=== PATIENT | male | born 1960 | race Caucasian/White ===

== ENCOUNTER 2017-02-25 09:07 | Inpatient (IN) ==
--- NOTE | 2017-02-25 10:04 | Emergency Department Note ---
Disposition Clinical Impression: Acute renal failure (ARF) Qualifiers: Acute renal failure type: unspecified Qualified Code(s): N17.9 - Acute kidney failure, unspecified Disposition: Admitted As Inpatient Condition: Good Referrals: Davon Mae MD [Primary Care Provider] - Time of Disposition: 11:37 General Adult HPI - General Chief complaint: ED General Medical Stated complaint: renal failure/[facility] Time Seen by Provider: 02/25/17 09:36 Source: patient Limitations: no limitations Nursing Notes Reviewed: Yes Vital Signs Reviewed: Yes - History of Present Illness HPI Narrative: Patient is a 56-year-old male that presents to the emergency department for possible acute renal failure. He states that he had recent blood work done [facility] the [facility] which showed elevated creatinine and worsening of his kidney function. He states that prior to this his last blood work was in December and his kidney function was completely normal. He also states that he was recently diagnosed with new onset atrial fibrillation and has been started on Xeralto. Patient states that he has been feeling fatigued and tired. Patient denies any urinary symptoms at this time. Patient denies having any pain at this time. Patient also reports that he had been recently diagnosed with bronchitis and is still having a cough. Pain Scale: 1 - Related Data Home Medications Medication Instructions Recorded Confirmed Amiloride HCl 5 mg PO DAILY 10/17/15 10/17/15 Fluticasone Propionate Nasal 1 spray NS DAILY 10/17/15 10/17/15 [Flonase] Metoprolol Tartrate [Lopressor] 50 mg PO BID 10/17/15 10/17/15 Montelukast [Singulair] 10 mg PO DAILY 10/17/15 10/17/15 Niacin [Niacor] 500 mg PO DAILY 10/17/15 10/17/15 Potassium Chloride [K-Tab ER] 20 meq PO QID 10/17/15 10/17/15 Tamsulosin [Flomax] 0.4 mg PO DAILY 10/17/15 10/17/15 Valsartan [Diovan] 160 mg PO DAILY 10/17/15 10/17/15 Previous Rx's Medication Instructions Recorded Clindamycin [Cleocin] 150 mg PO Q6HR #8 capsule 10/17/15 Hydrocodone/Acetaminophen [Lost[place] 1 tab PO Q6H PRN #20 tab 10/17/15 5-325 Tablet] Allergies Allergy/AdvReac Type Severity Reaction Status Date / Time Penicillins [PCN] Allergy unknown Verified 02/25/17 09:30 All systems ED: reviewed and negative except as stated. Constitutional: Reports: other (Patient is tired and fatigued) Respiratory: Reports: cough Past Medical History - Past Medical History Medical history: Reports: atrial fibrillation, GERD, hypertension, kidney stones , renal disease Psychiatric history: Reports: no psych history - Social History Smoking Status: Former smoker Smokeless Tobacco Status: No Alcohol use: Reports: none Drug use: Reports: none Physical Exam - General Limitations: no limitations General appearance: alert, in no apparent distress - Head Head exam: atraumatic, normocephalic - Eye Eye exam: Present: normal appearance, EOMI - Neck Neck exam: Present: normal inspection, full ROM, trachea midline - Respiratory Respiratory exam: Present: normal lung sounds bilaterally. Absent: respiratory distress, wheezes - Cardiovascular Cardiovascular exam: Present: regular rate, normal rhythm, normal heart sounds, +S1, +S2 - Abdominal Exam Abdominal exam: Present: soft, Non-Tender, normal bowel sounds - Neurological Exam Neurological exam: Present: alert, oriented X3 - Psychiatric Psychiatric exam: Present: normal affect, normal mood - Skin Skin exam: Present: warm, dry, intact Course Vital Signs Temperature 98.2 F 02/25/17 09:30 Pulse Rate 80 02/25/17 09:30 Respiratory Rate 20 02/25/17 09:30 Blood Pressure 124/76 02/25/17 09:30 O2 Sat by Pulse Oximetry 96 02/25/17 09:30 Temperature 98.2 F 02/25/17 09:30 Pulse Rate 80 02/25/17 09:30 Respiratory Rate 20 02/25/17 09:30 Blood Pressure 124/76 02/25/17 09:30 O2 Sat by Pulse Oximetry 96 02/25/17 09:30 Oxygen Delivery Oxygen Delivery Room Air Medical Decision Making - MDM Narrative Medical decision making narrative: Due to the patient presenting with possible acute renal failure we have ordered a CBC, BMP, urinalysis and an EKG. Patient elevated creatinine of 2.82. Patient also had an elevated blood glucose. This could possibly be due to the patient having recently been on steroids. Patient does not have any signs of DKA at this time. Patient also had an elevated TSH but is decreased from previous testing at the [facility]. I have spoken with the hospitalist and they have accepted this patient to their service. The patient will be admitted to the hospital for further evaluation and management. - Medical Records Medical records reviewed: Yes I reviewed the patient's medical records. - Lab Data Lab results reviewed: Yes I reviewed the patient's lab results. Result diagrams: 02/25/17 10:00 02/25/17 10:00 Lab Results 02/25/17 02/25/17 02/25/17 Range/Units 10:00 10:00 10:00 WBC 8.6 (4.3-11.1) K/mcL RBC 5.26 (4.19-5.50) M/mcL Hgb 14.9 (12.9-16.9) g/dL Hct 44.4 (37.5-50.1) % MCV 84.4 (83.0-100.0) fL MCH 28.3 (28.0-33.3) pg MCHC 33.6 (31.6-35.5) g/dL RDW 13.0 (11.5-14.5) % Plt Count 191 (140-400) K/mcL MPV 9.6 (9.4-12.4) fL Immature Gran % 1.4 (0-4) % Seg Neutrophils % 68.1 % Lymphocytes % 18.3 % Monocytes % 7.2 % Eosinophils % 4.7 % Basophils % 0.3 % Neutrophils # 5.9 (1.6-8.9) K/mcL Lymphocytes # 1.6 (0.6-4.6) K/mcL Monocytes # 0.6 (0.0-1.3) K/mcL Eosinophils # 0.4 (0.0-0.6) K/mcL Basophils # 0.0 (0.0-0.2) K/mcL Sodium 140 (136-145) mEq/L Potassium 4.0 (3.5-5.1) mEq/L Chloride 105 (98-107) mEq/L Carbon Dioxide 29 (23-29) mEq/L BUN 41 H (6-20) mg/dL Creatinine 2.82 H (0.70-1.30) mg/dL Est GFR ( Amer) 28 L (> 60) Est GFR (Non-Af Amer) 23 L (> 60) BUN/Creatinine Ratio 15 (6-26) Glucose 281 H (70-105) mg/dL Calculated Osmolality 310 H (280-300) Calcium 9.0 (8.6-10.3) mg/dL TSH 9.649 H (0.340-5.600) mcIU/mL Urine Color (Yellow) Urine Clarity (Clear) Urine pH (5.0-8.0) pH Units Ur Specific [place] (1.010-1.025) Urine Protein (Neg-Trace) mg/dL Urine Glucose (UA) (Normal) mg/dL Urine Ketones (Negative) mg/dL Urine Blood (Negative) Urine Nitrite (Negative) Urine Bilirubin (Negative) Urine Urobilinogen (Normal) mg/dL Ur Leukocyte Esterase (Negative) Ur Culture Indicated? (NO) 02/25/17 Range/Units 10:39 WBC (4.3-11.1) K/mcL RBC (4.19-5.50) M/mcL Hgb (12.9-16.9) g/dL Hct (37.5-50.1) % MCV (83.0-100.0) fL MCH (28.0-33.3) pg MCHC (31.6-35.5) g/dL RDW (11.5-14.5) % Plt Count (140-400) K/mcL MPV (9.4-12.4) fL Immature Gran % (0-4) % Seg Neutrophils % % Lymphocytes % % Monocytes % % Eosinophils % % Basophils % % Neutrophils # (1.6-8.9) K/mcL Lymphocytes # (0.6-4.6) K/mcL Monocytes # (0.0-1.3) K/mcL Eosinophils # (0.0-0.6) K/mcL Basophils # (0.0-0.2) K/mcL Sodium (136-145) mEq/L Potassium (3.5-5.1) mEq/L Chloride (98-107) mEq/L Carbon Dioxide (23-29) mEq/L BUN (6-20) mg/dL Creatinine (0.70-1.30) mg/dL Est GFR ( Amer) (> 60) Est GFR (Non-Af Amer) (> 60) BUN/Creatinine Ratio (6-26) Glucose (70-105) mg/dL Calculated Osmolality (280-300) Calcium (8.6-10.3) mg/dL TSH (0.340-5.600) mcIU/mL Urine Color Yellow (Yellow) Urine Clarity Clear (Clear) Urine pH 6.0 (5.0-8.0) pH Units Ur Specific [place] 1.022 (1.010-1.025) Urine Protein Negative (Neg-Trace) mg/dL Urine Glucose (UA) 250 H (Normal) mg/dL Urine Ketones Negative (Negative) mg/dL Urine Blood Negative (Negative) Urine Nitrite Negative (Negative) Urine Bilirubin Negative (Negative) Urine Urobilinogen Normal (Normal) mg/dL Ur Leukocyte Esterase Negative (Negative) Ur Culture Indicated? NO (NO) - EKG Data EKG #1 EKG attestation: Yes I reviewed and interpreted this EKG. EKG results narrative: EKG showed a sinus rhythm at a rate of 70 bpm, UT interval of 212, QRS duration of 109, QTC of 391 with a normal axis. There is no STEMI noted on this EKG. There is no previous EKG for comparison.
[2017-02-25 10:17] LABS: Basophils % 0.3 %; Eosinophils # 0.4 K/mcL (0.0-0.6); Eosinophils % 4.7 %; Hematocrit 44.4 % (37.5-50.1); Hemoglobin 14.9 g/dL (12.9-16.9); Immature Granulocytes % 1.4 % (0-4); Lymphocytes # 1.6 K/mcL (0.6-4.6); Lymphocytes % 18.3 %; Mean Corpuscular HGB Conc 33.6 g/dL (31.6-35.5); Mean Corpuscular Hemoglobin 28.3 pg (28.0-33.3); Mean Corpuscular Volume 84.4 fL (83.0-100.0); Mean Platelet Volume 9.6 fL (9.4-12.4); Monocytes # 0.6 K/mcL (0.0-1.3); Monocytes % 7.2 %; Neutrophils # 5.9 K/mcL (1.6-8.9); Platelet Count 191 K/mcL (140-400); Red Blood Count 5.26 M/mcL (4.19-5.50); Segmented Neutrophils % 68.1 %
--- NOTE | 2017-02-25 10:26 | Emergency Department Note ---
START Narrative - START START: I examined this patient and my medical decision-making was reviewed with the Resident Physician. I agree with the documented findings, disposition and treatment plan as described except to the extent set forth below. 56 year old male presnts to the ED sent [place] us [place] for hyperglycemia and acute renal fialure. Valentin most recently was placed on steroid therapy for a chronic brnochitis that he developed in addition to recently being diafnosed with atiral fibrillation which he is currenlty on lopressor and xarelto therapy. 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 We will do workup and rule out DKA/HHS and admit to medicine for ARF.
[2017-02-25] MEDS ORDERED: 0.9 % Sodium Chloride 1,000 ML IVC ONE (10:40)
[2017-02-25 10:51] LABS: Bilirubin,Urine Negative (Negative); Blood,Urine Negative (Negative); Clarity,Urine Clear (Clear); Color,Urine Yellow (Yellow); Glucose,Urine (UA) 250 mg/dL (Normal); Ketones,Urine Negative (Negative); Leukocyte Esterase,Urine Negative (Negative); Nitrite,Urine Negative (Negative); Protein,Urine Negative (Neg-Trace); Specific Gravity,Urine 1.022 (1.010-1.025); Urobilinogen,Urine Normal (Normal)
[2017-02-25] MEDS ORDERED: *HR* Dextrose 50 % in Water (Syg) 50 ML SYRINGE IVP PRN (17:37)
[2017-02-25] MEDS ORDERED: Dextrose Gel 15 GM/37.5 ML TUBE PO PRN ×2 (17:37)
[2017-02-25] MEDS ORDERED: D5% in Water 1,000 ML IVC PRN (17:37)
[2017-02-25] MEDS ORDERED: Naloxone 0.4 MG/ML INJ IVP PRN (17:37)
[2017-02-25] MEDS ORDERED: Acetaminophen 325 MG TABLET PO PRN (17:37)
--- NOTE | 2017-02-25 17:37 | Internal Med History&Physical ---
<Renee Castillo S - Last Filed: 02/25/17 18:12> Date of Encounter: 02/25/17 Time of Encounter: 17:37 Assessment and Plan (1) Acute renal failure (ARF) Status: Acute 56-year-old gentleman who presented from the [facility] with new onset of acute kidney injury BUN 41/creatinine 2.8 with normal reading one month ago. IV fluids Avoid nephrotoxic agents such as NSAIDs Hold valsartan Nephrology consult Renal ultrasound Patient has a history of kidney stones follow labs Qualifiers: Acute renal failure type: unspecified Qualified Code(s): N17.9 - Acute kidney failure, unspecified (2) Diabetes mellitus Status: Acute Patient is borderline diabetic per he and his . 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 Coe is a 56 year old male who presented to the emergency room referred by the [facility] system with new onset acute kidney injury and borderline diabetic. He was recently diagnosed with atrial fibrillation and placed on xarelto and Lopressor. He was also on valsartan for blood pressure control. He is also day #3 of Avelox and completed steroids for bronchitis. The patient states he has been taking ibuprofen 400 mg BID for right knee pain. He also not felt well, complaining of nausea and dizziness over the past few days He also does not drink water. He has an elevated TSH which is being followed at the [facility]. He states his hemoglobin A1c in January was 6.2. He denies fever, chills, chest pain, shortness of breath, abdominal pain, extremity edema, or syncope. He has had a little intermittent right flank pain. He denies any burning on urination , no diarrhea or constipation. His was at the bedside and we discussed plan of care. All questions were answered and he is agreeable to proposed plan. Past Med Surg Social Fam HX - Past Medical History Medical history: arthritis, atrial fibrillation, diabetes (borderline), GERD, hypertension, kidney stones, renal disease Psychiatric history: no psych history - Social History Smoking Status: Former smoker Smokeless Tobacco Status: No Alcohol use: none Drug use: none - Family History Mother Living Status: Age at : 61 Cause of : Cancer Hx Family Cancer: Yes (Breast with bone mets) Father Living Status: Age at : 72 Cause of : AR Hx Family Cardiac Disorders: Yes (AR) Hx Family Respiratory Disorders: Yes (COPD) Son Living Status: Age at : 56 Cause of : Cancer with mets Hx Family Cancer: Yes (Liver, brain, bone) Internal Medicine - H&P: Meds Fluticasone Propionate Nasal [Flonase] 50 mcg NS DAILY 10/17/15 [History] Metoprolol Tartrate [Lopressor] 50 mg PO BID 10/17/15 [History] Montelukast [Singulair] 10 mg PO DAILY 10/17/15 [History] Tamsulosin [Flomax] 0.4 mg PO DAILY 10/17/15 [History] Moxifloxacin HCl [Avelox] 400 mg PO DAILY 02/25/17 [History] Rivaroxaban [Xarelto] 20 mg PO DAILY 02/25/17 [History] predniSONE [PredniSONE] See Taper PO DAILY #18 tablet 02/27/17 [Rx] 3 Allergy/AdvReac Type Severity Reaction Status Date / Time Penicillins [PCN] Allergy unknown Verified 02/25/17 09:30 All Systems PM: A 10-system review of systems was performed and is negative for pertinent findings except as documented above in the HPI. - Constitutional Constitutional: as per HPI, fatigue, weight loss, no chills, no fever(s), no night sweats - EENT Eyes: no change in vision, no discharge, no pain, no photophobia Ears: no ear discharge, no ear pain, no tinnitus Nose, mouth and throat: no dysphagia, no nasal discharge, no neck pain, no sore throat - Cardiovascular Cardiovascular ROS IM: lightheadedness, no chest pain, no diaphoresis, no dyspnea, no edema, no palpitations, no syncope - Respiratory Respiratory: cough, no dyspnea, no hemoptysis, no dyspnea on exertion, no wheezing, no pain on inspiration, no excessive phlegm production - Gastrointestinal Gastrointestinal: nausea, no abdominal pain, no diarrhea, no hematemesis, no hematochezia, no melena, no vomiting - Genitourinary Genitourinary ROS male: flank pain, no difficulty urinating, no dysuria - Musculoskeletal Musculoskeletal ROS IM: other (right knee pain ), no numbness, no tingling - Integumentary Integumentary IM: no rash, no unusual bruising - Neurological Neurological ROS: no confusion, no convulsions, no focal weakness, no numbness, no tingling, no tremor(s) - Endocrine Endocrine IM: fatigue - Hematologic/Lymphatic Hematologic/Lymphatic: no easy bruising - Allergic/Immunologic Allergic/Immunologic: other (chronic sinus congestion) - Constitutional Vitals: Temp Pulse Resp BP Pulse Ox 98.5 F 76 16 114/70 95 02/25/17 16:25 02/25/17 16:25 02/25/17 16:25 02/25/17 16:25 02/25/17 16:25 General appearance: Present: A&O X 3, pleasant, no acute distress, obese, answers questions appropriately - Head Head exam: Present: atraumatic, normocephalic - Eye Eye exam: Present: PERRL, conjuntiva pink, sclera anicteric Pupils: Present: PERRL - Neck Neck exam general surgery: Present: supple, trachea midline. Absent: lymphadenopathy - Respiratory Respiratory exam: Present: CTAB. Absent: accessory muscle use, rales, rhonchi, wheezes - Cardiovascular Cardiovascular exam: Present: irregular rhythm, RRR. Absent: diastolic murmur, gallop, rubs, systolic murmur - GI/Abdominal GI/Abdominal exam: Present: normal bowel sounds, soft, no peritoneal signs. Absent: distended, tenderness - Extremities Exam Extremities exam: Present: warm, radial pulses palpable and symmetrical. Absent : calf tenderness, cyanotic, pedal edema - Neurological Exam Neurological exam: Present: CN II-XII intact, oriented X3, no focal deficits. Absent: pronater drift, facial droop, speech deficit - Skin Skin exam: Present: dry, intact, warm Internal Med - H&P Results - Labs CBC & Chem 7: 02/25/17 10:00 02/25/17 10:00 <Chet Antony P - Last Filed: 02/28/17 18:24> Date of Encounter: 02/28/17 Internal Medicine - H&P: HPI History of present illness: Mr. Coe is a 57 year old male All Systems PM: A 10-system review of systems was performed and is negative for pertinent findings except as documented above in the HPI. - Constitutional Vitals: Temp Pulse Resp BP Pulse Ox 98.2 F 95 16 145/88 94 02/27/17 10:56 02/27/17 10:56 02/27/17 10:56 02/27/17 10:56 02/27/17 10:56 Internal Med - H&P Results - Labs CBC & Chem 7: 02/26/17 03:21 02/27/17 05:05 - Impressions ITS Impressions Retroperitoneum Ultrasound 02/25/17 17:44 IMPRESSION: Unremarkable ultrasound of the kidneys and urinary bladder. Suspected fatty infiltration of the liver. 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 I agree with the documented findings, disposition and treatment plan as described except to the extent set forth below.
[2017-02-25] MEDS: Insulin LISPRO 300 UNITS/3 ML VIAL SQ SCH ×2 (18:29→21:06)
[2017-02-25] MEDS: 0.9 % Sodium Chloride 1,000 ML IVC SCH (18:38)
[2017-02-25] MEDS: *HR* Rivaroxaban 10 MG TABLET PO SCH (21:53)
[2017-02-26 04:03] LABS: Basophils # 0.1 K/mcL (0.0-0.2); Basophils % 0.5 %; Eosinophils # 0.5 K/mcL (0.0-0.6); Eosinophils % 4.6 %; Hematocrit 40.4 % (37.5-50.1); Hemoglobin 13.9 g/dL (12.9-16.9); Immature Granulocytes % 0.9 % (0-4); Lymphocytes # 1.9 K/mcL (0.6-4.6); Lymphocytes % 19.3 %; Mean Corpuscular HGB Conc 34.4 g/dL (31.6-35.5); Mean Corpuscular Volume 84.2 fL (83.0-100.0); Mean Platelet Volume 9.9 fL (9.4-12.4); Monocytes # 0.8 K/mcL (0.0-1.3); Monocytes % 8.4 %; Neutrophils # 6.7 K/mcL (1.6-8.9); Platelet Count 210 K/mcL (140-400); Segmented Neutrophils % 66.3 %
[2017-02-26 04:15] LABS: INR 2.1; Prothrombin Time 22.8 Seconds (9.4-12.1)
[2017-02-26 04:17] LABS: Activated Partial Thrombo Time 38.3 Seconds (26.0-36.0); Albumin 3.2 g/dL (3.5-5.7); Albumin/Globulin Ratio 1.2 (1.1-2.2); Bilirubin,Total 0.5 mg/dL (0.3-1.0); Calcium 8.4 mg/dL (8.6-10.3); Chol/HDL Ratio 5.6 (0-4.9); Globulin 2.7 g/dL (2.4-3.5); Magnesium 1.8 mg/dL (1.6-2.6); Phosphorous 4.3 mg/dL (2.7-4.5); Potassium 3.6 mEq/L (3.5-5.1); Total Protein 5.9 g/dL (6.4-8.9)
[2017-02-26] MEDS: 0.9 % Sodium Chloride 1,000 ML IVC SCH ×2 (06:11→17:37)
[2017-02-26] MEDS: Insulin LISPRO 300 UNITS/3 ML VIAL SQ SCH ×3 (07:52→17:36)
[2017-02-26] MEDS ORDERED: *HR* Rivaroxaban 10 MG TABLET PO SCH (09:00)
[2017-02-26] MEDS ORDERED: Fluticasone Propionate Nasal 50 MCG/SPRAY BOTTLE NS SCH (09:00)
[2017-02-26] MEDS: levoFLOXacin 250 MG TABLET PO SCH (10:22)
--- NOTE | 2017-02-26 11:25 | Internal Med Progress Note ---
<Sharif Lowery - Last Filed: 02/26/17 13:18> Date of Encounter: 02/26/17 Time of Encounter: 09:00 - Assessment and plan (1) Acute renal failure (ARF) Current Visit: Yes Status: Acute Assessment and plan: History of poor fluid intake and NSAID use for roughly 10-12 months using Ibuprofen 400 twice per day Urine neg Cr improving 2.82 -> 2.43 Renal ultrasound showing unremarkable US of kidneys and urinary bladder. Suspected fatty infiltration of the liver Plan: Avoid NSAIDs Hold valsartan and diuretics Nephrology consulted Continue IVF @ 100cc/hr Continue to watch kidney function over the weekend and plan for discharge tuesday Qualifiers: Acute renal failure type: unspecified Qualified Code(s): N17.9 - Acute kidney failure, unspecified (2) Atrial fibrillation Current Visit: Yes Status: Chronic Assessment and plan: Well controlled at this time HR 70s Telemetry NSR today Continue Lopressor and Xarelto Qualifiers: Atrial fibrillation type: chronic Qualified Code(s): I48.2 - Chronic atrial fibrillation (3) Acute bronchitis Current Visit: Yes Status: Acute Assessment and plan: On day four of Avelox Adding steroids and duonebs Qualifiers: Bronchitis organism: unspecified organism Qualified Code(s): J20.9 - Acute bronchitis, unspecified (4) HTN (hypertension) Current Visit: Yes Status: Chronic Assessment and plan: Holding home medications with ARF Well controlled at this time Qualifiers: Hypertension type: essential hypertension Qualified Code(s): I10 - Essential (primary) hypertension (5) Diabetes mellitus Current Visit: Yes Status: Acute Assessment and plan: Last A1c 6.2 in January BS in 200s on admission Blood sugars improved from yesterday Continue Accu-checks with LDSS coverage Diabetic diet Diabetic education on discharge Qualifiers: Diabetes mellitus type: type 2 Diabetes mellitus complication status: without complication Diabetes mellitus predatory animal exterminator insulin use: without predatory animal exterminator use Qualified Code(s): E11.9 - Type 2 diabetes mellitus without complications (6) Elevated TSH Current Visit: Yes Status: Acute Assessment and plan: Asymptomatic at this time. TSH 9.6 Checking free T4 and pending results, will initiate levothyroxine therapy (7) DVT prophylaxis Current Visit: Yes Status: Acute Assessment and plan: On xarelto - Subjective Interval history: Patient is admitted for ARF He is resting comfortably in chair with present No new concerns No overnight events per nursing Denies any fevers, chills, n/v, CP, palpitations, abdominal pain or GI issues - Constitutional Vitals: Temp Pulse Resp BP Pulse Ox 99.0 F 77 16 127/77 94 02/26/17 07:43 02/26/17 07:43 02/26/17 07:43 02/26/17 07:43 02/26/17 07:43 General appearance: Present: A&O X 3, pleasant, no acute distress, obese, answers questions appropriately - Head Head exam: Present: atraumatic, normocephalic - Eye Eye exam: Present: EOMI, normal appearance, conjuntiva pink, sclera anicteric - ENT ENT exam: Present: mucous membranes moist - Neck Neck exam general surgery: Present: supple, trachea midline - Respiratory Respiratory exam: Present: wheezes (bibasilar with crackles, cough with deep inspriation). Absent: respiratory distress - Cardiovascular Cardiovascular exam: Present: RRR, +S1, +S2 - GI/Abdominal GI/Abdominal exam: Present: normal bowel sounds, soft. Absent: tenderness - Extremities Exam Extremities exam: Present: warm. Absent: pedal edema, tenderness - Neurological Exam Neurological exam: Present: alert, oriented X3, no focal deficits - Psychiatric Psychiatric exam: Present: normal affect, normal mood - Skin Skin exam: Present: dry, warm Internal Medicine: Result - Labs CBC & Chem 7: 02/26/17 03:21 02/26/17 03:21 Labs: Short CBC 02/26/17 Range/Units 03:21 WBC 10.0 (4.3-11.1) K/mcL Hgb 13.9 (12.9-16.9) g/dL Hct 40.4 (37.5-50.1) % Plt Count 210 (140-400) K/mcL Neutrophils # 6.7 (1.6-8.9) K/mcL BMP 02/26/17 03:21 Sodium 142 Potassium 3.6 Chloride 111 H Carbon Dioxide 26 BUN 35 H Creatinine 2.43 H Glucose 142 H Calcium 8.4 L Liver Function 02/26/17 Range/Units 03:21 Total Bilirubin 0.5 (0.3-1.0) mg/dL AST 22 (13-39) Units/L ALT 31 (7-52) Units/L Alkaline Phosphatase 40 (34-104) Units/L Albumin 3.2 L (3.5-5.7) g/dL - ABG Interpretation ABG results: PT/INR, D-dimer PT 22.8 Seconds (9.4-12.1) H 02/26/17 03:21 - Impressions Impressions Retroperitoneum Ultrasound 02/25/17 17:44 IMPRESSION: Unremarkable ultrasound of the kidneys and urinary bladder. Suspected fatty infiltration of the liver. D/ / Esther Turner Cha, MD / Esther Turner Cha, MD Interpreting Provider: Esther Turner Cha, MD Consult Discharge Plan - Plan Referrals: Davon Mae MD [Primary Care Provider] - <[email or web address] - Last Filed: 02/26/17 15:48> Date of Encounter: 02/26/17 - Constitutional Vitals: Temp Pulse Resp BP Pulse Ox 99.2 F 85 16 109/70 92 02/26/17 11:21 02/26/17 11:21 02/26/17 11:57 02/26/17 11:21 02/26/17 11:57 Internal Medicine: Result - Labs CBC & Chem 7: 02/26/17 03:21 02/26/17 03:21 Labs: Short CBC 02/26/17 Range/Units 03:21 WBC 10.0 (4.3-11.1) K/mcL Hgb 13.9 (12.9-16.9) g/dL Hct 40.4 (37.5-50.1) % Plt Count 210 (140-400) K/mcL Neutrophils # 6.7 (1.6-8.9) K/mcL BMP 02/26/17 03:21 Sodium 142 Potassium 3.6 Chloride 111 H Carbon Dioxide 26 BUN 35 H Creatinine 2.43 H Glucose 142 H Calcium 8.4 L Liver Function 02/26/17 Range/Units 03:21 Total Bilirubin 0.5 (0.3-1.0) mg/dL AST 22 (13-39) Units/L ALT 31 (7-52) Units/L Alkaline Phosphatase 40 (34-104) Units/L Albumin 3.2 L (3.5-5.7) g/dL - ABG Interpretation ABG results: PT/INR, D-dimer PT 22.8 Seconds (9.4-12.1) H 02/26/17 03:21 - Impressions Impressions Retroperitoneum Ultrasound 02/25/17 17:44 IMPRESSION: Unremarkable ultrasound of the kidneys and urinary bladder. Suspected fatty infiltration of the liver. D/ / Esther Turner Cha, MD / Esther Turner Cha, MD Interpreting Provider: Esther Turner Cha, MD - Attending Attestation I examined this patient and my medical decision-making was reviewed with the Resident Physician Dr. Lowery. I agree with the documented findings, disposition and treatment plan as described except to the extent set forth below. Mr. Coe is a 56 year old male who presented to the emergency room referred by the [place] system with new onset acute kidney injury and borderline diabetic. He was recently diagnosed with atrial fibrillation and placed on xarelto and Lopressor. He was also on valsartan for blood pressure control. He is also day #3 of Avelox and completed steroids for bronchitis. The patient states he has been taking ibuprofen 400 mg BID for right knee pain. Pt was admitted here and started IV hydration. he is feeling little better today. Denied any CP / SOB. No events over night Gen: A, A, O x 3 Chest: Diminished BS b/l basal regions, no crackles Heart: S1 S2+ RRR Abd: Soft NT a/p 1. SRIDEVI - Pre renal mostly due to diuretics + ARB's ( hypotenstion ) + Chronic NSAID usage Hold diuretics + ARB's D/C NSAIDs IV hydration 2. Recent bronchitis cont home meds
[2017-02-26] MEDS: Ipratropium/Albuterol Neb 3 ML IH SCH ×3 (11:57→21:05)
--- NOTE | 2017-02-26 12:20 | Nephrology Consult Note ---
Date of Encounter: 02/26/17 Time of Encounter: 12:17 Assessment and Plan (1) Acute renal failure (ARF) Current Visit: Yes Status: Acute Patient with SRIDEVI that seems to be multifactorial. Ongoing NSAID use, hypotension in the face of ARB and diuretic use. Fortunately his renal function has improved overnight. Continue hydration. Renal ultrasound unremarkable. D/C NSAIDs Hold ARB and diuretics. No need for renal replacement therapy. I anticipate recovery. Qualifiers: Acute renal failure type: unspecified Qualified Code(s): N17.9 - Acute kidney failure, unspecified (2) Acute bronchitis Current Visit: Yes Status: Acute Per primary team. Continue antibiotics. Qualifiers: Bronchitis organism: unspecified organism Qualified Code(s): J20.9 - Acute bronchitis, unspecified (3) Diabetes mellitus Current Visit: Yes Status: Acute Patient would benefit from lifestyle modifications. Can add metformin once his SRIDEVI has resolved. Primary team to manage. Qualifiers: Diabetes mellitus type: type 2 Diabetes mellitus complication status: without complication Diabetes mellitus group home insulin use: without tank terminal gauger use Qualified Code(s): E11.9 - Type 2 diabetes mellitus without complications (4) Elevated TSH Current Visit: Yes Status: Acute Per primary team. ?sick euthyroid syndrome. Check free t4 and total t3 History of Present Illness - Reason for Consult Consult date: 02/26/17 Acute Kidney Injury - Chief Complaint SRIDEVI - History of Present Illness Mr. Coe is a 57 yo man with a history of hypertension who presents with bronchitis and acute kidney injury. He is accompanied by his who is a nurse and helps fill in the details of his history. Over a week ago the patient had decreased energy and was not feeling well manifested mostly by excessive lethargy. He was initially found to have bronchitis and was started on antibiotics and steroids. Subsequently he was also found to have atrial fibrillation and was started on Xarelto and his beta belinda was increased. At home he was found to have systolic blood pressure as low as the mid 80s. He denies nausea, vomiting or diarrhea. His repeat lab work indicated a worsening renal function which was new and he was advised to come to the ER for evaluation of his SRIDEVI. Patient reports he has been taking NSAIDs daily for about a year and stopped about a week ago after his acute kidney injury was detected. He has had 3 episodes of passing kidney stones and the last was over 5 years ago. He denies a family history of kidney disease. Past Med Surg Social Fam HX - Past Medical History Medical history: arthritis, atrial fibrillation, diabetes (borderline), GERD, hypertension, kidney stones, renal disease Psychiatric history: no psych history - Social History Smoking Status: Former smoker Smokeless Tobacco Status: No Alcohol use: none Drug use: none - Family History Mother Living Status: Age at : 61 Cause of : Cancer Hx Family Cancer: Yes (Breast with bone mets) Father Living Status: Age at : 72 Cause of : OR Hx Family Cardiac Disorders: Yes (OR) Hx Family Respiratory Disorders: Yes (COPD) Son Living Status: Age at : 56 Cause of : Cancer with mets Hx Family Cancer: Yes (Liver, brain, bone) Medications and Allergies Fluticasone Propionate Nasal [Flonase] 50 mcg NS DAILY 10/17/15 [History] Metoprolol Tartrate [Lopressor] 50 mg PO BID 10/17/15 [History] Montelukast [Singulair] 10 mg PO DAILY 10/17/15 [History] Potassium Chloride [K-Tab ER] 40 meq PO BID 10/17/15 [History] Tamsulosin [Flomax] 0.4 mg PO DAILY 10/17/15 [History] Valsartan [Diovan] 160 mg PO DAILY 10/17/15 [History] Moxifloxacin HCl [Avelox] 400 mg PO DAILY 02/25/17 [History] Rivaroxaban [Xarelto] 20 mg PO DAILY 02/25/17 [History] Triamterene/Hydrochlorothiazid [Triamterene-Hctz 75-50 mg Tab] 1 tab PO DAILY [History] 3 Allergy/AdvReac Type Severity Reaction Status Date / Time Penicillins [PCN] Allergy unknown Verified 02/25/17 09:30 Review of Systems All Systems: reviewed and no additional remarkable complaints except as stated ( as documented in the hpi) Exam - Vital Signs Vital signs: Initial Vital Signs Temp Pulse Resp BP Pulse Ox 98.2 F 80 20 124/76 96 02/25/17 09:30 02/25/17 09:30 02/25/17 09:30 02/25/17 09:30 02/25/17 09:30 Vital Signs - Last 8 Hours Temp Pulse Resp BP Pulse Ox 02/26/17 11:57 16 92 02/26/17 11:21 99.2 F 85 16 109/70 96 02/26/17 07:43 99.0 F 77 16 127/77 94 Intake and Output 02/25/17 02/26/17 02/26/17 23:59 07:59 15:59 Intake Total 1000 / 1000 240 / 240 Output Total 900 / 900 1350 / 1350 Balance -900 / -900 -350 / -350 240 / 240 Intake: IV Fluids 1000 / 1000 0.9 % Sodium Chloride 1,000 ML 1000 / 1000 @ 100 mls/hr IVC .Q10H HERMILA Rx#: [id number] Oral 240 / 240 Output: Urine 900 / 900 1350 / 1350 Other: Meal Breakfast Percent of Meal Consumed 100% Weight 105.24 kg Blood Glucose* 181 138 251 Patient Weight 02/26/17 23:59 Weight 105.24 kg - General Appearance General appearance: well-developed, well-nourished, obese EENT: ATNC Neck: supple Respiratory: clear Cardiology: no edema, regular rate, regular rhythm Gastrointestinal: no tenderness, obese Integumentary: warm and dry Neurologic: alert and oriented x3 Musculoskeletal: no cyanosis Psychiatric: mood/affect appropriate Results - Lab Results 02/26/17 03:21 02/26/17 03:21 Most recent lab results Calcium 8.4 mg/dL (8.6-10.3) L 02/26/17 03:21 Phosphorus 4.3 mg/dL (2.7-4.5) 02/26/17 03:21 Magnesium 1.8 mg/dL (1.6-2.6) 02/26/17 03:21 Consult Discharge Plan - Plan Referrals: Davon Mae MD [Primary Care Provider] -
[2017-02-26] MEDS: predniSONE 20 MG TABLET PO SCH (13:08)
[2017-02-26] MEDS: *HR* Rivaroxaban 10 MG TABLET PO SCH (17:37)
[2017-02-27] MEDS: 0.9 % Sodium Chloride 1,000 ML IVC SCH (03:40)
[2017-02-27] MEDS: Ipratropium/Albuterol Neb 3 ML IH SCH ×2 (04:07→10:48)
[2017-02-27] MEDS: Insulin LISPRO 300 UNITS/3 ML VIAL SQ SCH ×2 (05:15→07:54)
[2017-02-27 05:45] LABS: Calcium 8.1 mg/dL (8.6-10.3); Potassium 3.6 mEq/L (3.5-5.1)
--- NOTE | 2017-02-27 07:46 | Internal Med Progress Note ---
Date of Encounter: 02/27/17 Time of Encounter: 07:46 - Assessment and plan (1) Acute renal failure (ARF) Current Visit: Yes Status: Acute Assessment and plan: History of poor fluid intake, NSAID use for roughly 10-12 months using Ibuprofen 400 twice per day and hypotension with ARB use Urine neg Cr improving 2.82 -> 2.43 -> 2.03 Renal ultrasound showing unremarkable US of kidneys and urinary bladder. Suspected fatty infiltration of the liver Plan: Avoid NSAIDs Hold valsartan and diuretics Nephrology following Continue IVF Plan for discharge tuesday Qualifiers: Acute renal failure type: unspecified Qualified Code(s): N17.9 - Acute kidney failure, unspecified (2) Atrial fibrillation Current Visit: Yes Status: Chronic Assessment and plan: Well controlled at this time HR 80s Telemetry NSR today Continue Lopressor and Xarelto Qualifiers: Atrial fibrillation type: chronic Qualified Code(s): I48.2 - Chronic atrial fibrillation (3) Acute bronchitis Current Visit: Yes Status: Acute Assessment and plan: On day five of Avelox Continue steroids and duonebs Qualifiers: Bronchitis organism: unspecified organism Qualified Code(s): J20.9 - Acute bronchitis, unspecified (4) HTN (hypertension) Current Visit: Yes Status: Chronic Assessment and plan: Holding home medications with ARF Well controlled at this time Qualifiers: Hypertension type: essential hypertension Qualified Code(s): I10 - Essential (primary) hypertension (5) Diabetes mellitus Current Visit: Yes Status: Acute Assessment and plan: Last A1c 6.2 in January Continue Accu-checks with LDSS coverage Diabetic diet Diabetic education on discharge Qualifiers: Diabetes mellitus type: type 2 Diabetes mellitus complication status: without complication Diabetes mellitus prison insulin use: without prison use Qualified Code(s): E11.9 - Type 2 diabetes mellitus without complications (6) Elevated TSH Current Visit: Yes Status: Acute Assessment and plan: Asymptomatic at this time. TSH 9.6 Free T4 0.70, Total T3 0.65 Recommend repeat testing as outpatient (7) DVT prophylaxis Current Visit: Yes Status: Acute Assessment and plan: On xarelto - Subjective Interval history: Patient is admitted for ARF He is resting comfortably in bed with present No new concerns No overnight events per nursing Reports good appetite and oral intake last night Denies any fevers, chills, n/v, CP, palpitations, abdominal pain or GI issues - Constitutional Vitals: Temp Pulse Resp BP Pulse Ox 98.7 F 88 16 114/69 96 02/27/17 07:31 02/27/17 07:31 02/27/17 07:31 02/27/17 07:31 02/27/17 07:31 General appearance: Present: A&O X 3, pleasant, no acute distress, obese, answers questions appropriately - Head Head exam: Present: atraumatic, normocephalic - Eye Eye exam: Present: EOMI, normal appearance, conjuntiva pink, sclera anicteric - ENT ENT exam: Present: mucous membranes moist - Neck Neck exam general surgery: Present: supple, trachea midline - Respiratory Respiratory exam: Present: rhonchi, wheezes. Absent: accessory muscle use, prolonged expiratory phase, respiratory distress, tachypnea - Cardiovascular Cardiovascular exam: Present: RRR, +S1, +S2 - GI/Abdominal GI/Abdominal exam: Present: normal bowel sounds, soft. Absent: tenderness - Extremities Exam Extremities exam: Present: warm. Absent: pedal edema, tenderness - Neurological Exam Neurological exam: Present: alert, oriented X3, no focal deficits - Psychiatric Psychiatric exam: Present: normal affect, normal mood - Skin Skin exam: Present: dry, warm Internal Medicine: Result - Labs CBC & Chem 7: 02/26/17 03:21 02/27/17 05:05 Labs: BMP 02/27/17 05:05 Sodium 142 Potassium 3.6 Chloride 109 H Carbon Dioxide 23 BUN 31 H Creatinine 2.03 H Glucose 235 H Calcium 8.1 L - ABG Interpretation ABG results: PT/INR, D-dimer PT 22.8 Seconds (9.4-12.1) H 02/26/17 03:21 Consult Discharge Plan - Plan Referrals: Dvaon Mae MD [Primary Care Provider] -
[2017-02-27] MEDS: levoFLOXacin 250 MG TABLET PO SCH (07:54)
[2017-02-27] MEDS: predniSONE 20 MG TABLET PO SCH (07:54)
--- NOTE | 2017-02-27 09:51 | Nephrology Progress Note ---
Date of Encounter: 02/27/17 Time of Encounter: 09:49 - Assessment and Plan (1) Acute renal failure (ARF) Current Visit: Yes Status: Acute The patient has multifactorial acute kidney injury that seems to be improving. Recommend continuing to avoid nephrotoxic agents. Patient should consume at least 2 L of liquids daily. At this time I anticipate recovery, but did not know what his baseline renal function will be. From a renal standpoint okay for discharge with outpatient follow-up. I recommend a BMP in 1 week with results to his primary care provider as well as to [place] specialist attn- Dr. Carlos He can follow-up with me in [facility] in 4-8 weeks with repeat BMP 1-2 weeks prior to clinic visit. Qualifiers: Acute renal failure type: unspecified Qualified Code(s): N17.9 - Acute kidney failure, unspecified (2) HTN (hypertension) Current Visit: Yes Status: Chronic His blood pressure remains low off of his diuretic and ARB. Possible overcontrol of his blood pressure. I recommend continuing to hold these medications and the patient should monitor his blood pressure at home and call if his systolic blood pressure is greater than 130. Qualifiers: Hypertension type: essential hypertension Qualified Code(s): I10 - Essential (primary) hypertension (3) Acute bronchitis Current Visit: Yes Status: Acute Seems to be improving. Per primary team. Qualifiers: Bronchitis organism: unspecified organism Qualified Code(s): J20.9 - Acute bronchitis, unspecified (4) Diabetes mellitus Current Visit: Yes Status: Acute Per primary team. Qualifiers: Diabetes mellitus type: type 2 Diabetes mellitus complication status: without complication Diabetes mellitus correction insulin use: without alodize machine helper use Qualified Code(s): E11.9 - Type 2 diabetes mellitus without complications (5) Elevated TSH Current Visit: Yes Status: Acute Total T3 is slightly low. Will defer to primary team. Consider repeating test when acute illness is resolved. Subjective Principal diagnosis: SRIDEVI Interval history: Mr. Coe is in with multifactorial SRIDEVI. He is feeling well. No new complaint. Objective - Vital Signs Vital signs: Vital Signs Temp Pulse Resp BP Pulse Ox 02/27/17 07:31 98.7 F 88 16 114/69 96 02/27/17 04:08 14 94 02/27/17 03:32 98.7 F 86 16 98/55 95 02/26/17 22:51 99.4 F 106 16 111/61 95 02/26/17 21:06 16 96 02/26/17 18:36 99.2 F 97 16 120/71 95 02/26/17 16:31 98.1 F 105 16 125/73 96 02/26/17 16:07 16 96 02/26/17 11:57 16 92 02/26/17 11:21 99.2 F 85 16 109/70 96 Intake and Output 02/26/17 02/27/17 02/27/17 23:59 07:59 15:59 Intake Total 1000 / 1000 1000 / 1000 Output Total 900 / 900 Balance 1000 / 1000 100 / 100 Intake: IV Fluids 1000 / 1000 1000 / 1000 0.9 % Sodium Chloride 1,000 ML 1000 / 1000 1000 / 1000 @ 100 mls/hr IVC .Q10H HERMILA Rx#: [id number] Output: Urine 900 / 900 Other: Weight 132.358 kg Blood Glucose* 323 211 Patient Weight 02/27/17 23:59 Weight 132.358 kg - General Appearance General appearance: Present: well-developed, well-nourished EENT: Present: ATNC Neck: Present: supple Additional Comments: respirations are unlabored. Cardiology: Present: regular rate Integumentary: Present: warm and dry Neurologic: Present: alert and oriented x3 Psychiatric: Present: mood/affect appropriate - Lab 02/26/17 03:21 02/27/17 05:05 Most recent lab results Calcium 8.1 mg/dL (8.6-10.3) L 02/27/17 05:05 Phosphorus 4.3 mg/dL (2.7-4.5) 02/26/17 03:21 Magnesium 1.8 mg/dL (1.6-2.6) 02/26/17 03:21 Consult Discharge Plan - Plan Referrals: Davon Mae MD [Primary Care Provider] -
--- NOTE | 2017-02-27 10:44 | Discharge Summary ---
<Sharif Lowery - Last Filed: 02/27/17 11:11> Date of Encounter: 02/27/17 Time of Encounter: 10:40 - Discharge Diagnosis (1) Acute renal failure (ARF) Priority: Primary Status: Acute Qualifiers: Acute renal failure type: unspecified Qualified Code(s): N17.9 - Acute kidney failure, unspecified (2) Atrial fibrillation Priority: Secondary Status: Chronic Qualifiers: Atrial fibrillation type: chronic Qualified Code(s): I48.2 - Chronic atrial fibrillation (3) Acute bronchitis Priority: Secondary Status: Acute Qualifiers: Bronchitis organism: unspecified organism Qualified Code(s): J20.9 - Acute bronchitis, unspecified (4) HTN (hypertension) Priority: Secondary Status: Chronic Qualifiers: Hypertension type: essential hypertension Qualified Code(s): I10 - Essential (primary) hypertension (5) Diabetes mellitus Priority: Secondary Status: Acute Qualifiers: Diabetes mellitus type: type 2 Diabetes mellitus complication status: without complication Diabetes mellitus fdc insulin use: without fdc use Qualified Code(s): E11.9 - Type 2 diabetes mellitus without complications (6) Elevated TSH Priority: Secondary Status: Acute (7) DVT prophylaxis Priority: Secondary Status: Acute - Discharge Medications Prescriptions: predniSONE [PredniSONE] See Taper PO DAILY #18 tablet Home Medications: Fluticasone Propionate Nasal [Flonase] 50 mcg NS DAILY 10/17/15 [History] Metoprolol Tartrate [Lopressor] 50 mg PO BID 10/17/15 [History] Montelukast [Singulair] 10 mg PO DAILY 10/17/15 [History] Tamsulosin [Flomax] 0.4 mg PO DAILY 10/17/15 [History] Moxifloxacin HCl [Avelox] 400 mg PO DAILY 02/25/17 [History] Rivaroxaban [Xarelto] 20 mg PO DAILY 02/25/17 [History] predniSONE [PredniSONE] See Taper PO DAILY #18 tablet 02/27/17 [Rx] Allergies/Adverse Reactions: 3 Allergy/AdvReac Type Severity Reaction Status Date / Time Penicillins [PCN] Allergy unknown Verified 02/25/17 09:30 Procedures/tests Complete & Pending: Procedures Performed prior 72 hours Category Date Time Status retroperitoneal ultrasound - limited [US Exams 02/25/17 17:44 Completed retroperitoneal limited] [US] Routine Date of admission: 02/25/17 11:46 Primary care physician: Davon Mae MD Consults: 02/25/17 17:49 Consult to Nephrology [CONS] Routine Consulting Provider: Souleymane Nathan/DARREN/BESSIE/SHERIF Reason for Consult: ARF Call Completed: Yes Discharging clinician: Anshul Aaron Anticipated date of discharge: 02/27/17 - Patient Status Disposition: Home, Self-Care Condition: Good Functional capacity at discharge: independent ambulation Overall status at discharge: patient is back to baseline - Ambulatory Orders Ambulatory Orders: Basic Metabolic Panel [CHEM] Time Frame: 3 Days, Facility: [facility], Location: Lab - Discharge Instructions Instructions: Prednisone (By mouth), Acute Kidney Injury (DC), Diabetes Mellitus Type 2 in Adults (DC), Acute Bronchitis (DC), Chronic Hypertension (DC) Follow Up With: Davon Mae MD [Primary Care Provider] - (Appointment has been webrequested. Our offices will call you with an appointment time and date. ) Forms: ED Satisfaction Letter, Work/School Release Additional Instructions: Take all medications as prescribed Take 6 more days of Prednisone taper dosing, see prescription label Take one more day Avelox Drink at least 2L fluids per day Do not take Losartan or HCTZ. Followup with PCP within 3-5 days and can re-evaluate hypertension and diabetes plan Followup with [facility] within the next 6-8 weeks If your symptoms worsen or show no improvement, please call your PCP or return to the office/ED - Diet and Activity Activity: increase activity as tolerated Diet: diabetic diet Hospital course: Mr. Coe is a 56 year old male who presented to the [facility] emergency room [facility] with new onset acute kidney injury and borderline diabetic. He was recently diagnosed with atrial fibrillation and placed on xarelto and Lopressor. He was also on valsartan for blood pressure control. He is also day #3 of Avelox and completed steroids for bronchitis. The patient states he has been taking ibuprofen 400 mg BID for right knee pain for the past 10-12 months. He also is complaining of nausea and dizziness over the past few days He also does not drink water. He has an elevated TSH which is being followed at the [facility]. He states his hemoglobin A1c in January was 6.2. He denies fever, chills, chest pain, shortness of breath, abdominal pain, extremity edema, or syncope. He has had a little intermittent right flank pain. He denies any burning on urination, no diarrhea or constipation. His was at the bedside and we discussed plan of care. He was subsequently admitted via the hospitalist service with acute renal failure. IVF fluids were initiated and all diuretics and ARB held. BP remained stable throughout and Cr trended down. He continued his Avelox therapy along with steroids and duonebs. He will take 6 more days of steroids and 1 more day of Avelox on discharge. Repeat BMP in one week and Nephro follow-up in 6-8 weeks. He was discharged in stable condition on 02/27/17 with adequate followup in place. All questions and concerns were addressed. - Time Spent with Patient Total time spent providing and/or coordinating discharge services: - Constitutional Vitals: Temp Pulse Resp BP Pulse Ox 98.7 F 88 16 114/69 96 02/27/17 07:31 02/27/17 07:31 02/27/17 07:31 02/27/17 07:31 02/27/17 07:31 General appearance: Present: cooperative, A&O X 3, pleasant, no acute distress, obese, answers questions appropriately - Head Head exam: Present: atraumatic, normocephalic - Eye Eye exam: Present: EOMI, normal appearance, conjuntiva pink, sclera anicteric - ENT ENT exam: Present: mucous membranes moist - Neck Neck exam general surgery: Present: supple, trachea midline - Respiratory Respiratory exam: Present: wheezes. Absent: respiratory distress - Cardiovascular Cardiovascular exam: Present: RRR, +S1, +S2 - GI/Abdominal GI/Abdominal exam: Present: normal bowel sounds, soft. Absent: tenderness - Extremities Exam Extremities exam: Present: warm. Absent: pedal edema, tenderness - Neurological Exam Neurological exam: Present: alert, oriented X3, no focal deficits - Psychiatric Psychiatric exam: Present: normal affect, normal mood - Skin Skin exam: Present: dry, warm. Absent: diaphoretic <Anshul Aaron - Last Filed: 02/27/17 16:48> Date of Encounter: 02/27/17 Procedures/tests Complete & Pending: Procedures Performed prior 72 hours Category Date Time Status retroperitoneal ultrasound - limited [US Exams 02/25/17 17:44 Completed retroperitoneal limited] [US] Routine Date of admission: 02/25/17 11:46 Primary care physician: Davon Mae MD Consults: 02/25/17 17:49 Consult to Nephrology [CONS] Routine Consulting Provider: [facility]/DARREN/BESSIE/SHERIF Reason for Consult: ARF Call Completed: Yes Hospital course: Mr. Coe is a 57 year old male - Time Spent with Patient Total time spent providing and/or coordinating discharge services: - Constitutional Vitals: Temp Pulse Resp BP Pulse Ox 98.2 F 95 16 145/88 94 02/27/17 10:56 02/27/17 10:56 02/27/17 10:56 02/27/17 10:56 02/27/17 10:56 - Attending Attestation I examined this patient and my medical decision-making was reviewed with the Resident Physician Dr. Lowery. I agree with the documented findings, disposition and treatment plan as described except to the extent set forth below. Mr. Coe is a 56 year old male who [facility] with new onset acute kidney injury and borderline diabetic. He was recently diagnosed with atrial fibrillation and placed on xarelto and Lopressor. He was also on valsartan for blood pressure control. He is also day #3 of Avelox and completed steroids for bronchitis. The patient states he has been taking ibuprofen 400 mg BID for right knee pain. Pt was admitted here and started IV hydration. he is feeling lot better today. Denied any CP / SOB. No events over night..Wants to go home today Gen: A, A, O x 3 Chest: Diminished BS b/l basal regions, no crackles Heart: S1 S2+ RRR Abd: Soft NT a/p 1. SRIDEVI - Pre renal mostly due to diuretics + ARB's ( hypotenstion ) + Chronic NSAID usage improving... Cont holding Losartan + HCTZ for few more days f/u BMP in 3 days D/C NSAIDs 2. Recent bronchitis cont home meds medically stable to d/c home today
[2017-02-27 11:00] VITALS: BP 145/88
--- NOTE | 2017-02-28 15:39 | Electrocardiograph Report ---
[address] [place] [address] Test Date: 2017-02-25 Pat Name: Mynor Coe Department: 102 Room: 3B Gender: M Supervisor Floor Assembly: Maria D : 1960 Requested By: Georges Haider Order Number: [id number] Reading MD: Nicole Shaw Measurements Intervals [place] Rate: 70 P: 27 NM: 212 QRS: 21 QRSD: 109 T: 7 QT: 370 QTc: 391 Interpretive Statements SINUS RHYTHM WITH FIRST DEGREE AV BLOCK Electronically Signed On 02-28-2017 15:38:30 EST by Nicole Shaw
== END 2017-02-27 13:15 | disposition home or self-care (01) | DRG 683 ==
LOC: EMEROO 09:07 → SUATTDRO 11:46 → 3BNU 11:46
PROVIDERS: ADMIT Internal Medicine; ATTEND Family Medicine